=== PATIENT | male | born 1975 | race Caucasian/White ===

== ENCOUNTER 2021-06-06 11:31 | Emergency (ER) | payer OTHER ==
[~2021-06-06] VITALS: Ht 185.4 cm; Wt 90.2 kg
[2021-06-06] MEDS ORDERED: IV NORMAL SALINE 1000ML BAG 1,000 ML IV ONE (14:15)
[2021-06-06] MEDS ORDERED: fentaNYL PF VIAL 100 MCG/2 ML VIAL IVP ONE (14:15)
[2021-06-06 14:23] LABS: BASO % 1 % (0-3); EOS # 0.1 x10^3/uL (0.0-0.7); EOS % 1 % (0-3); HEMATOCRIT 41.3 % (39.0-53.0); LYMPH # 2.8 x10^3/uL (1.0-4.8); LYMPH % 30 % (24-48); MEAN CORPUSCULAR HEMOGLOBIN 31 pg (25-35); MEAN CORPUSCULAR HGB CONC 34 g/dL (31-37); MEAN CORPUSCULAR VOLUME 92 fL (79-100); MONO # 0.8 x10^3/uL (0.0-1.1); MONO % 9 % (0-9); NEUT # 5.5 x10^3/uL (1.8-7.7); NEUT % 60 % (31-73); PLATELET COUNT 398 x10^3/uL (140-400); RED BLOOD COUNT 4.51 x10^6/uL (4.30-5.70); RED CELL DISTRIBUTION WIDTH 14.4 % (11.5-14.5); WHITE BLOOD COUNT 9.2 x10^3/uL (4.0-11.0)
[2021-06-06 14:32] LABS: CALCIUM 8.9 mg/dL (8.5-10.1); CREATININE 1.1 mg/dL (0.7-1.3); GFR 73.1; POTASSIUM 4.1 mmol/L (3.5-5.1)
[2021-06-06 14:38] LABS: ALBUMIN 3.7 g/dL (3.4-5.0); ALBUMIN/GLOBULIN RATIO 1.1 (1.0-1.7); TOTAL BILIRUBIN 0.3 mg/dL (0.2-1.0); TOTAL PROTEIN 7.1 g/dL (6.4-8.2)
[2021-06-06] MEDS ORDERED: CONTRAST GIVEN. MC PRN (14:45)
[2021-06-06] MEDS ORDERED: IOHEXOL 300 MG/ML 100ML VIAL. IV ONE (15:00)
--- NOTE | 2021-06-06 15:21 | RAD ---
Axial CT of the abdomen and pelvis were obtained after the administration of 75 cc Omnipaque 300. Cor onal and sagittal reformats are also available. Exposure: One or more of the following individualized dose reduction techniques were utilized for thi s examination: 1. Automated exposure control 2. Adjustment of the mA and/or kV according to patient size 3. Use of iterative reconstruction technique Indication: Acute umbilical hernia. Nonreducibility.. Comparison: None. Findings: Lung bases are clear. Heart is unenlarged. Liver, gallbladder, spleen adrenals kidneys and pancreas a re unremarkable. The stomach, small and large bowel are nondistended. No evidence pathologic wall thickening. No free air-fluid. Radiologically significant retroperitoneal or mesenteric lymphadenopathy. The prostate gla nd is unenlarged. The abdominal aorta is minimally calcified. Aneurysmal dilation. Portal, superior m esenteric and splenic veins are normal in appearance. There is a fat filled umbilical hernia. Minimal induration is identified. No bowel is identified. Bon y structures are unremarkable in appearance. IMPRESSION: 1. Fat filled umbilical hernia. Minimal induration. If there is pain may represent early incarceratio n. No bowel is identified in the hernia. Electronically signed by: Neymar Forbes MD (06/06/2021 3:19 PM) [id number]
[2021-06-06 17:13] VITALS: BP 140/90
[2021-06-06] MEDS ORDERED: KETOROLAC 30 MG/ML VIAL. IVP ONE (17:15)
--- NOTE | 2021-06-06 17:22 | PHYS DOC ---
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 Patient reports that he has had his umbilical hernia for the past 15 years. Patient reports a 2-3 pain on a 1-10 pain scale at rest which increases to a 6 if he coughs. Patient states it is never hurt like this before and is why he is seeking emergency care. Patient denies recent fever or chills, denies chest pain shortness of breath or chest congestion. Patient denies abdominal pain other than at the specific site of his umbilical hernia. Patient denies any constipation, diarrhea, nausea or vomiting. Patient denies any recent fever chills or rashes of his skin. Patient denies any other physical complaints or physical concerns. Review of Systems: Review of Systems: 14 body systems of review of systems have been reviewed. See HPI for pertinent positives and negative responses, otherwise all other systems are negative, nonpertinent or noncontributory. Constitutional: Negative except as outlined in HPI above. Skin: Negative except as outlined in HPI above. Eyes: Negative except as outlined in HPI above. HENT: Negative except as outlined in HPI above. Respiratory: Negative except as outlined in HPI above. Cardiovascular: Negative except as outlined in HPI above. GI: Negative except as outlined in HPI above. : Negative except as outlined in HPI above. Musculoskeletal: Negative except as outlined in HPI above. Integument: Negative except as outlined in HPI above. Neurologic: Negative except as outlined in HPI above. Endocrine: Negative except as outlined in HPI above. Lymphatic: Negative except as outlined in HPI above. Psychiatric: Negative except as outlined in HPI above. Heart Score: C/O Chest Pain: No Risk Factors: Risk Factors: DM, Current or recent (<one month) smoker, HTN, HLP, family history of CAD, obesity. Risk Scores: Score 0 - 3: 2.5% MACE over next 6 weeks - Discharge Home Score 4 - 6: 20.3% MACE over next 6 weeks - Admit for Clinical Observation Score 7 - 10: 72.7% MACE over next 6 weeks - Early Invasive Strategies Current Medications: Patient reports home medications of trazodone nightly for sleep disorder. Current Medications Medications (Trade) Dose Ordered Sig/Randell Start Time Stop Time Status Last Admin Dose Admin Fentanyl Citrate (Fentanyl 2ml Vial) 50 mcg 1X ONCE 06/06/21 14:15 06/06/21 14:16 DC 06/06/21 15:20 50 MCG Info (CONTRAST GIVEN -- Rx MONITORING) 1 each PRN DAILY PRN 06/06/21 14:45 06/08/21 14:44 Iohexol (Omnipaque 300 Mg/ml) 75 ml 1X ONCE 06/06/21 15:00 06/06/21 15:01 DC 06/06/21 14:49 75 ML Ketorolac Tromethamine (Toradol 30mg Vial) 30 mg 1X ONCE 06/06/21 17:15 06/06/21 17:16 Sodium Chloride 1,000 ml @ 1,000 mls/hr 1X ONCE 06/06/21 14:15 06/06/21 15:14 DC 06/06/21 15:19 1,000 MLS/HR Allergies: Allergies: Allergies Coded Allergies Type Severity Reaction Last Updated Verified amoxicillin Allergy Unknown UNKNOWN 06/06/21 Yes Physical Exam: PE: Constitutional: Well developed, well nourished, no acute distress, non-toxic appearance. 45-year-old male in no apparent distress. HENT: Normocephalic, atraumatic. Eyes: Conjunctiva normal, no discharge. Neck: Normal range of motion, no stridor. Cardiovascular: No cyanosis appreciated, distal cap refill less than 2 seconds. Lungs & Thorax: Patient is in no respiratory distress, no audible adventitious lung sounds appreciated. Abdomen: Bowel sounds normal, soft, no masses, no pulsatile masses. Patient does have umbilical hernia, soft, elicited pain with palpation, unable to reduce related to pain. No areas of ecchymosis or skin discoloration of the abdomen. Skin: Warm, dry, no erythema, no rash. Back: No tenderness, no deformities. Extremities: No tenderness, no cyanosis, no clubbing, ROM intact, no edema. Neurologic: Alert and oriented X 3, normal motor function, normal sensory function, no focal deficits noted. Psychologic: Affect normal, judgement normal, mood normal. Current Patient Data: Labs: Laboratory Tests Test 06/06/21 13:45 White Blood Count 9.2 x10^3/uL (4.0-11.0) Red Blood Count 4.51 x10^6/uL (4.30-5.70) Hemoglobin 14.0 g/dL (13.0-17.5) Hematocrit 41.3 % (39.0-53.0) Mean Corpuscular Volume 92 fL (79-100) Mean Corpuscular Hemoglobin 31 pg (25-35) Mean Corpuscular Hemoglobin Concent 34 g/dL (31-37) Red Cell Distribution Width 14.4 % (11.5-14.5) Platelet Count 398 x10^3/uL (140-400) Neutrophils (%) (Auto) 60 % (31-73) Lymphocytes (%) (Auto) 30 % (24-48) Monocytes (%) (Auto) 9 % (0-9) Eosinophils (%) (Auto) 1 % (0-3) Basophils (%) (Auto) 1 % (0-3) Neutrophils # (Auto) 5.5 x10^3/uL (1.8-7.7) Lymphocytes # (Auto) 2.8 x10^3/uL (1.0-4.8) Monocytes # (Auto) 0.8 x10^3/uL (0.0-1.1) Eosinophils # (Auto) 0.1 x10^3/uL (0.0-0.7) Basophils # (Auto) 0.0 x10^3/uL (0.0-0.2) Sodium Level 135 mmol/L (136-145) L Potassium Level 4.1 mmol/L (3.5-5.1) Chloride Level 102 mmol/L (98-107) Carbon Dioxide Level 22 mmol/L (21-32) Anion Gap 11 (6-14) Blood Urea Nitrogen 9 mg/dL (8-26) Creatinine 1.1 mg/dL (0.7-1.3) Estimated GFR (Cockcroft-Gault) 73.1 BUN/Creatinine Ratio 8 (6-20) Glucose Level 172 mg/dL (70-99) H Calcium Level 8.9 mg/dL (8.5-10.1) Total Bilirubin 0.3 mg/dL (0.2-1.0) Aspartate Amino Transferase (AST) 17 U/L (15-37) Alanine Aminotransferase (ALT) 27 U/L (16-63) Alkaline Phosphatase 83 U/L (46-116) Total Protein 7.1 g/dL (6.4-8.2) Albumin 3.7 g/dL (3.4-5.0) Albumin/Globulin Ratio 1.1 (1.0-1.7) Laboratory Tests 06/06/21 13:45 Laboratory Tests 06/06/21 13:45 Vital Signs: Vital Signs Date Time Temp Pulse Resp B/P (MAP) Pulse Ox O2 Delivery O2 Flow Rate FiO2 06/06/21 15:20 16 Room Air 06/06/21 13:07 98.4 74 141/89 97 98.4 EKG: EKG: [] Radiology/Procedures: Radiology/Procedures: PATIENT: KERI LLOYD AACCOUNT: [id number] : 1975 LOCATION: ER AGE: 45 SEX: M EXAM STATUS: REG ER ORD. PHYSICIAN: VANDANA CARPENTER APRN REASON: Acute umbilical hernia pain nonreducible. PROCEDURE: CT ABD PELV W/ IV CONTRST ONLY Axial CT of the abdomen and pelvis were obtained after the administration of 75 cc Omnipaque 300. Coronal and sagittal reformats are also available. Exposure: One or more of the following individualized dose reduction techniques were utilized for this examination: 1. Automated exposure control 2. Adjustment of the mA and/or kV according to patient size 3. Use of iterative reconstruction technique Indication: Acute umbilical hernia. Nonreducibility.. Comparison: None. Findings: Lung bases are clear. Heart is unenlarged. Liver, gallbladder, spleen adrenals kidneys and pancreas are unremarkable. The stomach, small and large bowel are nondistended. No evidence pathologic wall thickening. No free air-fluid. Radiologically significant retroperitoneal or mesenteric lymphadenopathy. The prostate gland is unenlarged. The abdominal aorta is minimally calcified. Aneurysmal dilation. Portal, superior mesenteric and splenic veins are normal in appearance. There is a fat filled umbilical hernia. Minimal induration is identified. No bowel is identified. Bony structures are unremarkable in appearance. IMPRESSION: 1. Fat filled umbilical hernia. Minimal induration. If there is pain may represent early incarceration. No bowel is identified in the hernia. Electronically signed by: Neymar Forbes MD (06/06/2021 3:19 PM) [id number] Course & Med Decision Making: Course & Med Decision Making Pertinent Labs and Imaging studies reviewed. (See chart for details) 45-year-old male, vital signs reviewed, presents to the emergency department concerning umbilical hernia pain. Physical examination concerning for strangul ated umbilical hernia versus acute pain from blunt trauma. Will order 50 mics IV fentanyl, CT abdomen pelvis with contrast to evaluate hernia. CT negative for strangulation, however recommended consult if painful to palpation. Upon examination of the patient, the patient states that he cannot self reduced without difficulty. Called on-call general surgeon Dr. Pabon and reviewed patient case and ED work-up, Dr. Pabon recommends patient be given Toradol for pain, discharged home and follow-up on outpatient basis for further evaluation of umbilical hernia with the information he was provided verbally by me. Discussed findings with patient, Toradol ordered, patient amendable to this tomas n, patient states that he does feel much better now. Patient is asking for work excuse for tomorrow. Will give patient Dr. Pabon's office information for outpatient follow-up. Discussed with the patient all findings and diagnostic testing as well as the need to follow-up with their primary care provider for further evaluation and treatment or return to the ED if any new or worsening symptoms. Strict return precautions were also discussed at length, the patient voiced understanding and agreement with the discharge planning. The patient was nontoxic in appearance, in no apparent distress, and hemodynamically stable at the time of disposition. Dragon Disclaimer: Dragon Disclaimer: This electronic medical record was generated, in whole or in part, using a voice recognition dictation system. Departure Departure Impression: Primary Impression: Umbilical hernia Qualified Codes: K42.9 - Umbilical hernia without obstruction or gangrene Additional Impression: Abdominal pain Qualified Codes: R10.9 - Unspecified abdominal pain Disposition: HOME / SELF CARE / HOMELESS Condition: GOOD Referrals: UNKNOWN PCP NAME (PCP) Patient Instructions: Hernia Additional Instructions: You were seen today in the emergency department for pain at your umbilical hernia site. A CT evaluation was performed and did not show any concerning findings of strangulation which would require immediate attention by a general surgeon. I did however speak with general surgeon Dr. Pabon who recommended you take ibuprofen for pain and follow-up with him in his office for further evaluation and treatment planning of your umbilical hernia. You may take ibuprofen [id number] as needed for abdominal discomfort. Please return to the emergency department immediately for acute increased pain that is not relieved with [id number] ibuprofen or Tylenol. Thank you for visiting our Emergency Department. It was a pleasure taking care of you today in the emergency department and we appreciate you trusting us with your care. If any additional problems come up don't hesitate to return to visit us. Please follow up with your primary care provider so they can plan additional care if needed and know about the problem that you had. If symptoms worsen come back to the Emergency Department. Any concerning symptoms that start such as chest pain, shortness of air, weakness or numbness on one side of the body, running high fevers or any other concerning symptoms return to the ER. EMERGENCY DEPARTMENT GENERAL DISCHARGE INSTRUCTIONS Thank you for coming to [facility] Emergency Department (ED) [facility] and trusting us with you care. We trust that you had a positive experience in our Emergency Department. If you wish to speak to the department management, you may call the Director at [phone]. YOUR FOLLOW UP INSTRUCTIONS ARE FOLLOWS: 1. Do you have a private Doctor? If you do not have a private doctor, please ask for a resource list of physicians or clinics that may be able to assist you with follow up care. 2. The Emergency Physicain has interpreted your x-rays. The X-Ray specialist will also review them. If there is a change in the findings, you will be notified in 48 hours when at all possible. 3. A lab test or culture has been done, your results will be reviewed and you will be notified if you need a change in treatment. ADDITIONAL INSTRUCTIONS AND INFORMATION: 1. Your care today has been supervised by a physician who is specially trained in emergency care. Many problems require more than one evaluation for a complete diagnosis and treatment. We recommend that you schedule your follow up appointment as recommended to ensure complete treatment of you illness or injury. If you are unable to obtain follow up care and continue to have a problem, or if your condition worsens, we recommend that you return to the ED. 2. We are not able to safely determine your condition over the phone nor are we able to give sound medical advice over the phone. For these safety reasons, if you call for medical advice we will ask you to come to the ED for further evaluation. 3. If you have any questions regarding these discharge instructions please call the ED at [phone]. SAFETY INFORMATION: In the interest of safety, wellness, and injury prevention; we encourage you to wear your sealbelt, if you smoke; quite smoking, and we encourage family to use a protective helmet for bicycling and other sporting events that present an increased risk for head injury. IF YOUR SYMPTOMS WORSEN OR NEW SYMPTOMS DEVELOP, OR YOU HAVE CONCERNS ABOUT YOUR CONDITION; OR IF YOUR CONDITION WORSENS WHILE YOU ARE WAITING FOR YOUR FOLLOW UP APPOIN TMENT; EITHER CONTACT YOUR PRIMARY CARE DOCTOR, THE PHYSICIAN WHOSE NAME AND NUMBER YOU WERE GIVEN, OR RETURN TO THE ED IMMEDIATELY. VANDANA CARPENTER APRN Jun 06, 2021 17:22
== END 2021-06-06 17:38 | disposition home or self-care (01) ==
LOC: ER 11:31
DX: K42.9 Umbilical hernia without obstruction or gangrene (principal); F17.200 Nicotine dependence, unspecified, uncomplicated; Z88.1 Allergy status to other antibiotic agents
CPT/HCPCS: 36415; 74177; 80053; 85025; 96361; 96374; 96375; 99285; J1885; J3010; J7030; Q9967